=== PATIENT | male | born 1955 | race Two or more races ===

== ENCOUNTER 2017-10-04 09:56 | Inpatient (IN) | payer SELFPAY ==
[2017-10-04] VITALS (7 sets, daily range): BP systolic 113–132; BP diastolic 60–85
[~2017-10-04] VITALS: Ht 162.6 cm; Wt 63.5 kg
[2017-10-04] MEDS ORDERED: Tetanus/Diptheria/Pertussis Vaccine 0.5ml Syr IM ONE (10:30)
[2017-10-04] MEDS ORDERED: Bacitracin Oint UD TOPIC ONE (10:30)
[2017-10-04 10:53] LABS: BASOPHILS % (AUTO) 1.5 % (0.0-2.0); EOSINOPHILS % (AUTO) 0.1 % (0.0-3.0); HEMATOCRIT 43.6 % (42.0-52.0); HEMOGLOBIN 14.2 G/DL (14.2-18.0); LYMPHOCYTES % (AUTO) 18.6 % (20.0-45.0); MEAN CORPUSCULAR VOLUME 104 FL (80-99); NEUTROPHILS % (AUTO) 68.7 % (45.0-75.0); PLATELET COUNT 154 K/UL (150-450); RED BLOOD COUNT 4.22 M/UL (4.70-6.10); WHITE BLOOD COUNT 5.9 K/UL (4.8-10.8)
[2017-10-04 11:04] LABS: ANION GAP 16 mmol/L (5-15); BLOOD UREA NITROGEN 12 mg/dL (7-18); CALCIUM 8.5 MG/DL (8.5-10.1); CARBON DIOXIDE 21 MMOL/L (21-32); CHLORIDE 111 MMOL/L (98-107); CREATININE 0.8 MG/DL (0.55-1.30); POTASSIUM 3.6 MMOL/L (3.5-5.1); SODIUM 148 MMOL/L (136-145)
[2017-10-04 11:11] LABS: ALANINE AMINOTRANSFERASE 39 U/L (12-78); ALBUMIN 3.4 G/DL (3.4-5.0); ALBUMIN/GLOBULIN RATIO 0.8 (1.0-2.7); ALKALINE PHOSPHATASE 101 U/L (46-116); ASPARTATE AMINO TRANSFERASE 109 U/L (15-37); BILIRUBIN,TOTAL 0.7 MG/DL (0.2-1.0)
--- NOTE | 2017-10-04 11:45 | Diagnostic Imaging Report ---
Indication: Head trauma. Headache Technique: Contiguous 5 mm thick transaxial imaging of the head obtained in a Siemens Sensation [address] scanner. Soft tissue and bone windows generated. Automatic Exposure Control was utilized. Total Dose length Product (DLP): 1431.[address] Dose Index Volume (CTDIvol): 70.38 mGy Comparison: none Findings: There is mild prominence of the ventricles, basal cisterns, and cerebral sulci consistent with atrophy. Mild, nonspecific, white matter hypoattenuation is noted throughout the brain consistent with chronic small vessel disease. There is no midline shift, edema, acute hemorrhage, mass effect, or abnormal extra-axial fluid collections. Bones and extra osseous soft tissues are unremarkable. There is soft tissue swelling present in the right periorbital region. Impression: No acute intracranial bleed, mass effect or edema. Mild atrophy of the brain. Nonspecific white matter hypoattenuation probably due to chronic small vessel disease. Right periorbital soft tissue contusion The CT scanner at [facility] is accredited by the [employer] and the scans are performed using dose optimization techniques as appropriate to a performed exam including Automatic Exposure control.
[2017-10-04 12:45] LABS: CREATINE KINASE 3604 U/L (26-308)
--- NOTE | 2017-10-04 12:49 | Emergency Room Report ---
History of Present Illness General Chief Complaint: Alcohol Intoxication Source: Patient, EMS Present Illness HPI Patient is brought in for alcohol intoxication and weakness. No further history is available as the patient is not answering questions at this time. Accu-Chek in the field was normal. There is evidence of facial trauma but were unable to determine how this occurred. 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 Born [place] Reviewed Nursing Documentation: PMH: Agreed; PSxH: Agreed Review of Systems All Other Systems: limited Physical Exam Vital Signs Date Time Temp Pulse Resp B/P (MAP) Pulse Ox O2 Delivery O2 Flow Rate FiO2 10/04/17 09:55 98.4 86 20 130/85 98 Room Air 98.4 Sp02 EP Interpretation: reviewed, normal General Appearance: no apparent distress, non-toxic, other - dishevelled, alcohol on breath Head: normocephalic Eyes: right eye other - periorbital swelling, orbit intact; bilateral eye PERRL , bilateral eye Scleral Injection ENT: moist mucus membranes Neck: supple, no bony tend Respiratory: chest non-tender, lungs clear, normal breath sounds Cardiovascular #1: regular rate, rhythm Cardiovascular #2: 2+ radial (R) Gastrointestinal: normal inspection, normal bowel sounds, non tender, no mass, non-distended Musculoskeletal: back normal, normal range of motion Neurologic: responsive, motor strength/tone normal, DTRs symmetric, sensory intact, other - slurred speech Psychiatric: other - appears inebriated Skin: warm/dry, abrasions - R face and arm Medical Decision Making Diagnostic Impression: Primary Impression: Acute alcoholic intoxication Qualified Codes: F10.929 - Alcohol use, unspecified with intoxication, unspecified Additional Impressions: NSTEMI (non-ST elevated myocardial infarction) Head trauma Qualified Codes: S09.90XA - Unspecified injury of head, initial encounter ER Course Patient presents with weakness, head trauma and alcohol ingestion. DDx: bleed, alcohol intoxication, electrolyte abnormalities, facial contusion, seizure amongst others. Difficult as patient not answering questions and with head trauma. Evaluation with EKG, CT head, CXR, labs. Treatment with IV hydration and cardiac observation. EKG without injury. CXR clear. CT no bleed - periorbital swelling. Elevated BA. Called with + troponin. CK is also elevated. Aspirin given. Now patient denies chest pain or prior cardiac injury or issues. States he wants to leave as he has a job to get to. Advised of injury to heart. He agrees to stay. Denies pain. Neuro improving. Admit tele Dr. Strickland. Laboratory Tests Test 10/04/17 10:17 10/04/17 12:30 White Blood Count 5.9 K/UL (4.8-10.8) Red Blood Count 4.22 M/UL (4.70-6.10) L Hemoglobin 14.2 G/DL (14.2-18.0) Hematocrit 43.6 % (42.0-52.0) Mean Corpuscular Volume 104 FL (80-99) H Mean Corpuscular Hemoglobin 33.7 PG (27.0-31.0) H Mean Corpuscular Hemoglobin Concent 32.6 G/DL (32.0-36.0) Red Cell Distribution Width 12.0 % (11.6-14.8) Platelet Count 154 K/UL (150-450) Mean Platelet Volume 7.9 FL (6.5-10.1) Neutrophils (%) (Auto) 68.7 % (45.0-75.0) Lymphocytes (%) (Auto) 18.6 % (20.0-45.0) L Monocytes (%) (Auto) 11.0 % (1.0-10.0) H Eosinophils (%) (Auto) 0.1 % (0.0-3.0) Basophils (%) (Auto) 1.5 % (0.0-2.0) Sodium Level 148 MMOL/L (136-145) H Potassium Level 3.6 MMOL/L (3.5-5.1) Chloride Level 111 MMOL/L (98-107) H Carbon Dioxide Level 21 MMOL/L (21-32) Anion Gap 16 mmol/L (5-15) H Blood Urea Nitrogen 12 mg/dL (7-18) Creatinine 0.8 MG/DL (0.55-1.30) Estimate Glomerular Filtration Rate > 60 mL/min (>60) Glucose Level 169 MG/DL (74-106) H Calcium Level 8.5 MG/DL (8.5-10.1) Total Bilirubin 0.7 MG/DL (0.2-1.0) Aspartate Amino Transferase (AST) 109 U/L (15-37) H Alanine Aminotransferase (ALT) 39 U/L (12-78) Alkaline Phosphatase 101 U/L (46-116) Total Creatine Kinase Pending Troponin I 0.070 ng/mL (0.000-0.056) Total Protein 7.8 G/DL (6.4-8.2) Albumin 3.4 G/DL (3.4-5.0) Globulin 4.4 g/dL Albumin/Globulin Ratio 0.8 (1.0-2.7) L Salicylates Level < 0.2 ug/mL (2.8-20) L Acetaminophen Level < 2 MCG/ML (10-30) L Serum Alcohol 464 mg/dL Urine Opiates Screen Pending Urine Barbiturates Screen Pending Phencyclidine (PCP) Screen Pending Urine Amphetamines Screen Pending Urine Benzodiazepines Screen Pending Urine Cocaine Screen Pending Urine Marijuana (THC) Screen Pending EKG Diagnostic Results Rate: normal Rhythm: NSR ST Segments: no acute changes ASA given to the pt in ED: Yes Rhythm Strip Diag. Results EP Interpretation: yes Rhythm: NSR, no PVC's, no ectopy Chest X-Ray Diagnostic Results Chest X-Ray Diagnostic Results : Chest X-Ray Ordered: Yes # of Views/Limited/Complete: 1 View Indication: Other EP Interpretation: Yes Interpretation: no consolidation, no effusion, no pneumothorax, no acute cardiopulmonary disease Impression: No acute disease Electronically Signed by: Electronically signed by Moris Viramontes MD CT/MRI/US Diagnostic Results CT/MRI/US Diagnostic Results : Imaging Test Ordered: head Impression White matter changes and swelling over the right eye without any obvious fractures Status: improved Disposition: ADMITTED INPATIENT Condition: Serious Referrals: NOT CHOSEN SHERIN/,REFERRING (PCP) Moris Viramontes M.D. October 04, 2017 12:49
--- NOTE | 2017-10-04 13:02 | Diagnostic Imaging Report ---
Indication: Dyspnea Comparison: None A single view chest radiograph was obtained. Findings: Cardiomediastinal appearance is within normal limits for age. Pulmonary vascularity is appropriate. The diaphragmatic contour is smooth and costophrenic angles are sharp. No pleural effusions are identified. The bones are osteopenic. Impression: No acute findings
[2017-10-04] MEDS ORDERED: UNOBMED (13:54)
[2017-10-04] MEDS ORDERED: Morphine Sulfate 4mg/ml Inj IVP PRN (18:30)
[2017-10-04] MEDS ORDERED: Nitroglycerin Subl 0.4mg tab SL PRN (18:30)
[2017-10-04] MEDS ORDERED: chlordiazePOXIDE 25mg Cap ORAL PRN (18:30)
[2017-10-04] MEDS ORDERED: LORazepam Inj 2mg/ml 1ml IV PRN (18:30)
[2017-10-04] MEDS ORDERED: Thiamine HCl 100 MG in D5W 110 ML IVPB SCH (21:00)
[2017-10-04] MEDS ORDERED: Folic Acid 1 MG, Magnesium Sulfate 2,000 MG, Multivitamin - 12 Injection 10 ML in NS w/... IV SCH (21:00)
[2017-10-04] MEDS: Heparin 5000 units/ml inj SUBQ SCH (21:49)
[2017-10-05] VITALS: BP 132/68
[2017-10-05 04:00] VITALS: BP 126/82
[2017-10-05 06:14] LABS: BASOPHILS % (AUTO) 1.7 % (0.0-2.0); EOSINOPHILS % (AUTO) 2.3 % (0.0-3.0); HEMATOCRIT 33.5 % (42.0-52.0); HEMOGLOBIN 11.9 G/DL (14.2-18.0); LYMPHOCYTES % (AUTO) 18.1 % (20.0-45.0); MEAN CORPUSCULAR VOLUME 103 FL (80-99); MONOCYTES % (AUTO) 10.3 % (1.0-10.0); NEUTROPHILS % (AUTO) 67.6 % (45.0-75.0); PLATELET COUNT 110 K/UL (150-450); RED BLOOD COUNT 3.27 M/UL (4.70-6.10); RED CELL DISTRIBUTION WIDTH 11.8 % (11.6-14.8)
[2017-10-05 06:38] LABS: ALANINE AMINOTRANSFERASE 41 U/L (12-78); ALBUMIN 2.7 G/DL (3.4-5.0); ALBUMIN/GLOBULIN RATIO 0.7 (1.0-2.7); ALKALINE PHOSPHATASE 80 U/L (46-116); ANION GAP 13 mmol/L (5-15); ASPARTATE AMINO TRANSFERASE 131 U/L (15-37); BLOOD UREA NITROGEN 11 mg/dL (7-18); CALCIUM 8.1 MG/DL (8.5-10.1); CARBON DIOXIDE 22 MMOL/L (21-32); CHLORIDE 110 MMOL/L (98-107); CHOLESTEROL 115 MG/DL (< 200); CREATININE 0.8 MG/DL (0.55-1.30); HDL CHOLESTEROL 71 MG/DL (40-60); POTASSIUM 3.9 MMOL/L (3.5-5.1); SODIUM 145 MMOL/L (136-145); TRIGLYCERIDES 62 MG/DL (30-150)
[2017-10-05 08:00] VITALS: BP 135/85
[2017-10-05] MEDS ORDERED: Propranolol 10mg tab ORAL SCH ×2 (08:30→14:00)
--- NOTE | 2017-10-05 08:39 | History & Physical ---
History and Physical History & Physicial seen and examined. Dictation completed Nasra Strickland MD October 05, 2017 08:38
[2017-10-05] MEDS: Heparin 5000 units/ml inj SUBQ SCH (09:00)
[2017-10-05] MEDS ORDERED: Aspirin Baby 81mg ORAL SCH (09:00)
[2017-10-05] MEDS ORDERED: Aspirin EC 325mg tab ORAL SCH (09:00)
[2017-10-05] MEDS ORDERED: Metoprolol 25mg tab ORAL SCH (09:00)
--- NOTE | 2017-10-05 12:54 | Consultation ---
History of Present Illness General Date patient seen: October 05, 2017 Chief Complaint: Alcohol Intoxication Present Illness HPI 62 y/o M with hx of HIV, ETOH abuse is brought to ED on 10/04 with alcohol intoxication and weakness. In ED notice to have facial trauma. Patient awake and alert. Denies f/c, N/v/d, cough, SOB. Per patient has been diagnosed with HIV about 10 years ago; he is currently on ARV treatment and refers being 100% compliance with treatment and follows regularly with HIV provider. Patient doesn't remember name of meds and has not list with him. He refers his HIV doc told him he as undetectable, cant tell CD4 number. Allergies: Coded Allergies: No Known Allergies (Unverified , 10/04/17) Medication History Miscellaneous Medications Unable to Obtain Medications (Unable To Obtain Meds), (Reported) Patient History Healthcare decision maker Resuscitation status Full Code Advanced Directive on File Patient History Narrative PMhx: as above Shx: The patient was born and family are still in [place]. The patient gives history of longstanding time of using Vodka of unknown volume on a daily basis. The patient denies history of illicit drug abuse. Denies history of smoking. Fhx: non contributory. Review of Systems All Other Systems: negative except mentioned in HPI Physical Exam Physical Exam Narrative HEAD AND NECK: Atraumatic and normocephalic. CHEST: Clear to auscultation. HEART: S1, S2. Regular rate and rhythm. ABDOMEN: Soft. There is no organomegaly. MUSCULOSKELETAL: No gross focal motor deficits. NEUROLOGIC: Awake, alert and oriented x3. Last 24 Hour Vital Signs Date Time Temp Pulse Resp B/P (MAP) Pulse Ox O2 Delivery O2 Flow Rate FiO2 10/05/17 09:31 100 126/82 10/05/17 08:00 98.7 109 18 135/85 99 Nasal Cannula 2.0 98.7 10/05/17 04:00 100 10/05/17 04:00 96.8 102 20 126/82 98 Nasal Cannula 2.0 96.8 10/05/17 00:00 100 10/05/17 00:00 97.7 110 19 132/68 97 Nasal Cannula 2.0 97.7 10/04/17 21:00 113 10/04/17 20:00 98.1 114 18 121/60 99 Nasal Cannula 2.0 98.1 10/04/17 17:14 98.4 108 21 132/73 98 Room Air 98.4 10/04/17 16:30 98.4 103 19 120/69 99 Room Air 98.4 10/04/17 16:30 98.4 203 19 120/69 97 Room Air 98.4 10/04/17 15:09 98.4 83 13 122/65 99 Room Air 98.4 10/04/17 13:45 98.4 82 12 113/68 97 Room Air 98.4 Intake and Output 10/04/17 10/05/17 19:00 07:00 Intake Total 0 ml Balance 0 ml Other 0 ml # Voids 1 Laboratory Tests Test 10/04/17 21:10 10/05/17 05:35 Troponin I 0.085 ng/mL (0.000-0.056) 0.103 ng/mL (0.000-0.056) White Blood Count 4.0 K/UL (4.8-10.8) L Red Blood Count 3.27 M/UL (4.70-6.10) L Hemoglobin 11.9 G/DL (14.2-18.0) L Hematocrit 33.5 % (42.0-52.0) L Mean Corpuscular Volume 103 FL (80-99) H Mean Corpuscular Hemoglobin 36.4 PG (27.0-31.0) H Mean Corpuscular Hemoglobin Concent 35.4 G/DL (32.0-36.0) Red Cell Distribution Width 11.8 % (11.6-14.8) Platelet Count 110 K/UL (150-450) L Mean Platelet Volume 8.3 FL (6.5-10.1) Neutrophils (%) (Auto) 67.6 % (45.0-75.0) Lymphocytes (%) (Auto) 18.1 % (20.0-45.0) L Monocytes (%) (Auto) 10.3 % (1.0-10.0) H Eosinophils (%) (Auto) 2.3 % (0.0-3.0) Basophils (%) (Auto) 1.7 % (0.0-2.0) Sodium Level 145 MMOL/L (136-145) Potassium Level 3.9 MMOL/L (3.5-5.1) Chloride Level 110 MMOL/L (98-107) H Carbon Dioxide Level 22 MMOL/L (21-32) Anion Gap 13 mmol/L (5-15) Blood Urea Nitrogen 11 mg/dL (7-18) Creatinine 0.8 MG/DL (0.55-1.30) Estimat Glomerular Filtration Rate > 60 mL/min (>60) Glucose Level 104 MG/DL (74-106) Hemoglobin A1c 6.5 % (4.3-6.0) H Calcium Level 8.1 MG/DL (8.5-10.1) L Total Bilirubin 1.0 MG/DL (0.2-1.0) Aspartate Amino Transf (AST/SGOT) 131 U/L (15-37) H Alanine Aminotransferase (ALT/SGPT) 41 U/L (12-78) Alkaline Phosphatase 80 U/L (46-116) Pro-B-Type Natriuretic Peptide 230 pg/mL (0-125) H Total Protein 6.4 G/DL (6.4-8.2) Albumin 2.7 G/DL (3.4-5.0) L Globulin 3.7 g/dL Albumin/Globulin Ratio 0.7 (1.0-2.7) L Triglycerides Level 62 MG/DL (30-150) Cholesterol Level 115 MG/DL (< 200) LDL Cholesterol 43 mg/dL (<100) HDL Cholesterol 71 MG/DL (40-60) H Cholesterol/HDL Ratio 1.6 (3.3-4.4) L Height (Feet): 5 Height (Inches): 4.00 Weight (Pounds): 140 Medications Current Medications Medications (Trade) Dose Ordered Sig/Yves Route PRN Reason Start Time Stop Time Status Last Admin Dose Admin Aspirin (Ecotrin) 325 mg DAILY ORAL 10/05/17 09:00 11/04/17 08:59 10/05/17 09:32 Chlordiazepoxide (Librium) 25 mg TIDPRN PRN ORAL Agitation 10/04/17 18:30 10/11/17 18:29 Folic Acid 1 mg/ Magnesium Sulfate 2000 mg/ Multivitamins 10 ml/Sodium Chloride 1,014.2 ml @ 100 mls/ hr Q24H IV 10/04/17 21:00 11/03/17 20:59 10/04/17 21:47 Heparin Sodium (Porcine) (Heparin 5000 units/ml) 5,000 units EVERY 12 HOURS SUBQ 10/04/17 21:00 11/03/17 20:59 10/04/17 21:49 Lorazepam (Ativan 2mg/ml 1ml) 1 mg Q8H PRN IV For Seizures 10/04/17 18:30 10/11/17 18:29 Morphine Sulfate (Morphine Sulfate) 2 mg Q8H PRN IVP Prn Chest Pain 10/04/17 18:30 10/11/17 18:29 Nitroglycerin (Ntg) 0.4 mg Q5M PRN SL Prn Chest Pain 10/04/17 18:30 11/03/17 18:29 Pantoprazole (Protonix) 40 mg DAILY ORAL 10/05/17 09:00 11/04/17 08:59 10/05/17 09:32 Propranolol HCl (Inderal) 10 mg Q8HR ORAL 10/05/17 14:00 11/04/17 13:59 Thiamine HCl 100 mg/Dextrose 111 ml @ 222 mls/hr Q24H IVPB 10/04/17 21:00 11/03/17 20:59 10/04/17 21:48 Assessment/Plan Assessment/Plan Abx: None Assessment: Alcohol intoxication (levels >400 mg/dl, very high) -CT head: No acute intracranial bleed, mass effect or edema. Mild atrophy of the brain. Nonspecific white matter hypoattenuation probably due to chronic small vessel disease.Right periorbital soft tissue contusion -CXR: No acute findings Elevated AST- 2ry to above Afebrile, no leukocytosis Troponinemia Facial trauma HIV positive- per patient, controlled and Undetectable VL with good compliance to ARV Thrombocytopenia- multifactorial- 2ry to above- r/o cirrhosis Plan: -Continue to monitor off abx -hep serologies -Abd US -Ask RN to get medication list from HIV provider so ARV regimen can be continued in house. -CD4, VL, RPR -f/u cx -Monitor CBC/BMP, temperatures Thank you for this consultation. Will continue to follow along with you. Discussed with Deepthi Billingsley M.D. October 05, 2017 12:54
[2017-10-05 14:27] VITALS: BP 138/81
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
--- NOTE | 2017-10-06 22:31 | Cardiology Report ---
APPROVED REPORT EKG Measurement Heart [id number] Normal sinus rhythm Prolonged QT Abnormal ECG
== END 2017-10-05 16:37 | disposition left against medical advice (07) | DRG 894 ==
LOC: EDBD 09:56 → EMR 10:25 → 2E 11:34 → EDBEDREQ 15:56
DX: F10.239 Alcohol dependence with withdrawal, unspecified (principal); G93.40 Encephalopathy, unspecified; B20 Human immunodeficiency virus [HIV] disease; M62.82 Rhabdomyolysis; I24.9 Acute ischemic heart disease, unspecified; F10.229 Alcohol dependence with intoxication, unspecified; D64.9 Anemia, unspecified; K70.9 Alcoholic liver disease, unspecified; D69.6 Thrombocytopenia, unspecified; S00.83XA Contusion of other part of head, initial encounter; X58.XXXA Exposure to other specified factors, initial encounter
CPT/HCPCS: 36415; 70450; 71045; 80053; 80061; 80307; 80329; 82550; 83036; 83880; 84484; 85025; 87081; 90471; 90715; 93005; 93306; 99285